=== PATIENT | male | born 1995 | race Caucasian/White ===

== ENCOUNTER 2021-07-15 15:21 | Emergency (ER) | payer OTHER, SELFPAY ==
[2021-07-15 15:23] VITALS: BP 132/84; PULSE 78; RESP 18; TEMP 35.9; O2SAT 99; BMI 26.5
[2021-07-15] MEDS: Diphth,Pertuss(Acell),Tet Vac 0.5 ML Vial IM (15:58)
[2021-07-15] MEDS: Lidocaine 1% (20 ml mdv) 20 ML Vial 5 ML INFILT (15:58)
[2021-07-15] MEDS: Cephalexin 250 MG Capsule 500 MG PO (15:59)
--- NOTE | 2021-07-15 15:59 | EX.ED.DYSGE1 ---
HPI History of Present Illness Chief Complaint: Foreign Body Informant: patient and friend Narrative Narrative: 26-year-old male presenting to the emergency department with a nail in his right index finger. He is right-hand dominant. This is from a nail gun that accidentally fired. Unknown last tetanus. He went to urgent care who took x-rays was concerned that the nail was in the bone and sent him to emergency. PFSH PFSH Medical History no medical history no medical history Home Medications cephalexin 500 mg PO Q6 #28 capsule 07/15/21 [Rx Last Taken Unknown] Allergy/AdvReac Type Severity Reaction Status Date / Time No Known Allergies Allergy Verified 07/15/21 15:24 Surgical History (Updated 07/15/21 @ 16:[address] Deny Hollis DO) History of surgery on wrist Surgical History no surgical history Social History (Updated 07/15/21 @ 16:[address] Deny Hollis DO) Smoking Status: Never smoker substance use type: does not use ROS ROS ED Constitutional Constitutional ED: Denies chills, fever(s) or weight loss Eyes Eyes: Denies change in vision or diplopia ENT ENT ED: Denies ear pain, rhinorrhea or sore throat Cardiovascular Cardiovascular: Denies chest pain, orthopnea, palpitations or racing heartbeat Respiratory/Chest Respiratory/Chest: Denies cough, dyspnea or orthopnea Gastrointestinal Gastrointestinal: Denies abdominal pain, diarrhea, nausea or vomiting Genitourinary Genitourinary ED: Denies dysuria, hematuria or urinary frequency Musculoskeletal Musculoskeletal: Denies arthralgias or myalgias Integumentary Reports other Details: See history of present illness ; Denies abscess or rash Neurologic Neurologic: Denies headache(s) or weakness Psychiatric Psychiatric: Denies anxiety, depression, suicidal ideation or suicidal thoughts Endocrine Endocrinology: Denies polydipsia, polyphagia or polyuria Allergic/Immunologic Allergic/Immunologic ED: Denies mouth swelling, tongue swelling or urticaria EXAM Physical Exam Const Vital Signs: 07/15/21 15:23 Temperature 96.6 F L Temperature Source Temporal Pulse Rate 78 Respiratory Rate 18 Blood Pressure 132/84 H Blood Pressure Mean 100 Pulse Ox 99 Oxygen Delivery Method Room Air Positive well nourished and well developed General Appearance ED: well developed HEENT Reports normocephalic, head/scalp atraumatic, TM's clear and moist mucous membranes Negative for trauma Tympanic Membrane ED: Yes TM's clear Eyes PERRL and EOMs intact bilaterally Neck no lymphadenopathy, supple and no JVD Resp normal respiratory effort and clear to auscultation bilaterally Cardio regular rate, regular rhythm and no murmurs GI normal to inspection, nondistended, normoactive bowel sounds and non-tender Palpation: soft Back/Spine no CVA tenderness and normal ROM Extremity Extremity Narrative: There is a nail entering the lateral aspect of the right index finger near the DIP joint. Neurovascular appears intact. General Extremety ED: Negative for edema General Extremity: Negative for edema Neuro oriented x3 and CN's II-XII intact bilaterally Sensorium / Orientation: alert Motor Exam: strength 5/5 throughout Psych mental status grossly normal Mood & Affect: Negative for depressed or tearful Skin no rashes or lesions noted and no wounds MDM MDM MDM Narrative Medical decision making narrative: Patient underwent digital block using 1% lidocaine using a single volar approach. Once adequate anesthesia was obtained the nail was grasped and removed without difficulty. Wound was washed with Shur-Clens and gently irrigated. Wound was left open. Tetanus was updated he will be placed on Keflex. My interpretation of the plain films post removal is no acute osseous injury. Neurovascularly and tendon function connor he is intact. Patient will follow up with orthopedics on Tuesday in the office Discharge Plan Triage Chief Complaint: Foreign Body ED Provider: Deny Hollis Dx/Rx/DC Orders Clinical Impression: Foreign body finger Instructions: ED Foreign Body Soft Tissue Prescriptions: New cephalexin [cephalexin] 500 MG capsule 500 mg PO Q6 Qty: 28 RF: 0 Primary Care Provider: Care Physician,No Primary Referrals: Nacho Valencia DO [STAFF PHYSICIAN] - 2 Days for wound check Care Physician,No Primary [Primary Care Provider] - Activity Restrictions/Additional Instructions: Please call the office to be seen on Tuesday to arrange follow-up for wound check Disposition Disposition: Home, Self Care
--- NOTE | 2021-07-15 16:03 | ED.RN ---
PT STATES HE WANTS ER VISIT TO BE RAN THROUGH [employer]. PT COMPANY IS THE PLACE IN [facility]. FROI FORM COMPLETED.
--- NOTE | 2021-07-15 16:04 | RAD_ITS ---
STUDY: X-RAY - RIGHT HAND, ATTENTION SECOND FINGER REASON FOR EXAM: Male, 26 years old. foreign body removal TECHNIQUE: 2 view(s) of the finger were obtained. COMPARISON: None. FINDINGS: Normal metacarpal head. Normal metacarpophalangeal joint. Normal proximal phalanx. Normal middle phalanx. Normal distal phalanx. Normal proximal interphalangeal joint. Normal distal interphalangeal joint. RAD/Finger(s) Min 2 Views IMPRESSION: No radiopaque foreign body. No demonstrated fracture. Electronically Signed: Nilton De Leon MD (Brooks) at 16:27 EDT , Service support ,
--- NOTE | 2021-07-15 16:14 | ED.RN ---
PER [facility], , AT THE PLACE. NO DRUG TESTING REQUIRED
== END 2021-07-15 16:31 | disposition home or self-care (01) ==
PROVIDERS: Emergency Provider Emergency Medicine
DX: S60.450A Superficial foreign body of right index finger, initial encounter (principal); W45.0XXA Nail entering through skin, initial encounter; W29.4XXA Contact with nail gun, initial encounter; Y93.89 Activity, other specified; Y92.89 Other specified places as the place of occurrence of the external cause; Y99.8 Other external cause status; Z23 Encounter for immunization
CPT/HCPCS: 11750; 73140; 90715; 96372; 99282